=== PATIENT | female | born 1960 | race Two or more races ===

== ENCOUNTER 2018-07-20 05:57 | Day surgery (SDC) | payer OTHER ==
[2018-07-17 10:17] VITALS: BMI 23.4
[2018-07-20] MEDS ORDERED: SEVOFLURANE 250 ML BTL ONE (07:12)
[2018-07-20] MEDS ORDERED: DEXAMETHASONE SOD PHOSPHATE/PF 10 MG/ML SDV ONE (07:23)
[2018-07-20] MEDS ORDERED: MIDAZOLAM HCL 2 MG/2 ML SINGLE DOSE VIAL ONE (07:23)
[2018-07-20] MEDS ORDERED: BUPIVACAINE HCL/PF (5 MG/ML) 30 ML VIAL IJ ONE (07:24)
[2018-07-20] MEDS ORDERED: PROPOFOL 20 ML ONE (08:16)
[2018-07-20] MEDS ORDERED: SUCCINYLCHOLINE CHLORIDE 200 MG/10 ML VIAL ONE (08:16)
[2018-07-20] MEDS ORDERED: oxyCODONE HCL 5 MG TABLET PO PRN ×2 (09:22)
[2018-07-20] MEDS ORDERED: PROMETHAZINE HCL 25 MG/1 ML VIAL IVPB PRN (09:22)
[2018-07-20] MEDS ORDERED: ONDANSETRON 4 MG/2 ML VIAL IVPUSH PRN (09:22)
--- NOTE | 2018-07-20 11:33 | OP ---
DATE OF OPERATION: 07/20/2018 PREOPERATIVE DIAGNOSIS: Impingement with rotator cuff tear to the right shoulder. POSTOPERATIVE DIAGNOSIS: Impingement from the acromion and coracoclavicular ligament, adhesions within the joint, impingement for the lateral clavicle including the distal articular surface, hypertrophic synovium, inflamed bursal tissue, and tearing of the rotator cuff with glenoid labral tear. PROCEDURE PERFORMED: Operative arthroscopy of the right shoulder with subacromial decompression with release and resection of coracoacromial ligament, lysis and resection of adhesions, distal claviculectomy including the distal articular surface, proximal synovectomy with extensive debridement, debridement of inflamed bursal tissue, partial glenoid labral resection, and debridement of partial thickness tear of the rotator cuff. SURGEON: Carlos Ibarra MD STATION SUPERVISOR: Leonidas Aguero. ANESTHESIOLOGIST: Isidoro Alva MD ANESTHESIA: Regional block with general augment was performed. THE PROCEDURE: Consisted of the patient being brought into the operating room and gently transferred from the stretcher to the OR table with all bony prominences well padded. The right shoulder was prepared and draped in sterile fashion. The patient was given intravenous antibiotics and copious irrigation throughout the procedure to minimize the risk for infection. A complete wksy-wyqosdf-dia-alternative discussion was conducted with the patient, which was inclusive of, but not limited to, bleeding, , increased pain, and need for repeat surgical treatment. The patient asked questions, understood the procedure, and desired to proceed with surgical treatment. An appropriate time-out, which was inclusive of, but not limited to, the site of surgery, surgeon, anesthesiologist, and type of surgery was performed. Following sterile preparation and draping of the patient, the patient was placed in the right side up lateral decubitus position with great care to protect the bony structures with a pillow below the legs and a pillow between the legs with the anesthesiologist taking great care to protect the facial features and the cervical spine. Following the sterile preparation and draping of the right shoulder and the patient in the [id number] lateral decubitus position, the patient was given gentle traction using a traction device of approximately 8 pounds. Anterior posterolateral portal was used to introduce the arthroscope and arthroscopic instruments. The glenohumeral joint was evaluated. There was noted to be adhesions within the joint preventing expansion, and these were lysed and resected. The biceps tendon was found to have fraying, and this was debrided using shaver and radiofrequency wand. The glenoid labrum was noted to have a tear, and a partial glenoid labral resection was performed. Rotator cuff on the articular side was found to have a tear, which was probed and found to be partial thickness. This was debrided using shaver and radiofrequency wand. There was noted to be hypertrophic synovium. An extensive partial synovectomy was performed. The shoulder joint was copiously irrigated, and our attention was turned to the subacromial space. There was noted to be inflamed bursal tissue. An extensive partial bursectomy was performed. Rotator cuff on the bursal side was found to be intact. The acromion was noted to have impingement from the outer edge of bone, and this was debrided, and high-speed andrea and shaver was used to resect a wedge of bone thick anteriorly and thin posteriorly. A lateral clavicle including the articular portion was created impingement. This was debrided using a shaver and radiofrequency wand. There was noted to be impingement also from the coracoacromial ligament, and this was lysed and dissected. The shoulder joint was then copiously irrigated with sterile saline irrigant. The wounds were closed with 4-0 undyed Vicryl. We applied Steri-Strips, Xeroform, 4x4s, combine, Elastoplast, and shoulder immobilizer. The patient was examined, awoken from anesthesia, and transferred from the operating room to the recovery room in satisfactory condition. There were no intraoperative complications. Hiro [id number]
[2018-07-20 12:11] VITALS: TEMP 98
[2018-07-20 12:15] VITALS: BP 146/77; PULSE 84
== END 2018-07-20 11:45 | disposition home or self-care (01) ==
LOC: FASU 05:57
PROVIDERS: ATTEND Orthopaedic Surgery
PROC: 0RNJ4ZZ Release Right Shoulder Joint, Percutaneous Endoscopic Approach (ICD-10-PCS; 2018-07-20)
PROC: 0PB94ZZ Excision of Right Clavicle, Percutaneous Endoscopic Approach (ICD-10-PCS; 2018-07-20)
PROC: 0RBJ4ZZ Excision of Right Shoulder Joint, Percutaneous Endoscopic Approach (ICD-10-PCS; 2018-07-20)
PROC: 0LQ14ZZ Repair Right Shoulder Tendon, Percutaneous Endoscopic Approach (ICD-10-PCS; principal; 2018-07-20 08:00)
DX: M75.101 Unspecified rotator cuff tear or rupture of right shoulder, not specified as traumatic (principal); M75.01 Adhesive capsulitis of right shoulder; M67.211 Synovial hypertrophy, not elsewhere classified, right shoulder; M75.51 Bursitis of right shoulder; M24.111 Other articular cartilage disorders, right shoulder
CPT/HCPCS: 94760